=== PATIENT | male | born 1945 | race Caucasian/White ===

== ENCOUNTER 2018-06-18 08:31 | Day surgery (SDC) | payer MEDICARE ==
[2018-06-18] MEDS ORDERED: Lactated Ringer's 500 ML IV ONE (09:10)
[2018-06-18 09:27] VITALS: BMI 32.4
[2018-06-18] MEDS ORDERED: Propofol 10 mg/ml Inj (20 ML) ONE (10:40)
[2018-06-18 11:09] VITALS: BP 125/72; PULSE 78; RESP 18; TEMP 97.2; O2SAT 98
== END 2018-06-18 11:10 | disposition home or self-care (01) ==
LOC: H.ENDO 08:31
PROVIDERS: ATTEND Internal Medicine Gastroenterology
DX: K30 Functional dyspepsia (principal); E11.9 Type 2 diabetes mellitus without complications; I10 Essential (primary) hypertension; K44.9 Diaphragmatic hernia without obstruction or gangrene; K29.50 Unspecified chronic gastritis without bleeding; K31.89 Other diseases of stomach and duodenum
CPT/HCPCS: 43239; 82948; 88305; J2001; J2704; J7120